=== PATIENT | female | born 1990 | race Caucasian/White ===

== ENCOUNTER 2025-09-06 09:56 | Outpatient (CLI) | payer BC, SELFPAY | END 2025-09-06 09:57 | disposition home or self-care (01) | PROVIDERS: PCP Student in an Organized Health Care Education/Training Program; Visit Provider Obstetrics & Gynecology | DX: E28.2 Polycystic ovarian syndrome (principal) | CPT/HCPCS: 83001; 84270; 84402; 84403; 84439; 84443; 86376 ==